=== PATIENT | male | born 1980 ===

== ENCOUNTER 2023-08-02 10:41 | Emergency (ER) | payer OTHER ==
[~2023-08-02] VITALS: Ht 177.8 cm; Wt 81.8 kg
[2023-08-02 11:10] VITALS: TEMP 100.7
[2023-08-02 11:19] LABS: COVID AG,FIA SOURCE NASAL SWAB
[2023-08-02 11:55] LABS: INFLUENZA TYPE A NEGATIVE FOR TYPE A (NEGATIVE); INFLUENZA TYPE B POSITIVE FOR TYPE B (NEGATIVE); SARS-COV2 (COVID) ANTIGEN,FIA Negative (Negative)
[2023-08-02] MEDS ORDERED: ONDANSETRON HCL 4 MG TABLET PO ONE (13:15)
[2023-08-02] MEDS ORDERED: OSEL75 PO (13:34)
[2023-08-02 14:42] VITALS: BP 111/76; PULSE 88; RESP 16
== END 2023-08-02 14:44 | disposition home or self-care (01) ==
LOC: EMS 10:44
DX: J10.1 Influenza due to other identified influenza virus with other respiratory manifestations (principal); Z20.822 Contact with and (suspected) exposure to COVID-19
CPT/HCPCS: 99283; 87426; 87804; Q0162